=== PATIENT | female | born 1935 | race Caucasian/White ===

== ENCOUNTER 2020-12-03 22:34 | Emergency (ER) | payer BC, OTHER ==
[~2020-12-03] VITALS: Ht 162.6 cm; Wt 68.0 kg
[2020-12-03 22:37] VITALS: BP_SYST 115
--- NOTE | 2020-12-03 22:42 | NUR ---
Placed in room 01 . Placed on leases and land supervisor, blood pressure machine and pulse oximeter. To gown for exam. Side rails up. Report given to adelita Veras
[2020-12-03] MEDS ORDERED: NACL 0.9% 1,000 ML IV ONE (23:15)
--- NOTE | 2020-12-03 23:20 | NUR ---
IV STARTED RT FA 20G; LABS DRAWN PER [facility] PROTOCOL AND BLOOD CULTURES IV .9 NS 1000ML INFUSING
--- NOTE | 2020-12-03 23:35 | NUR ---
DR CALDERON TO [facility] PT
[2020-12-03] MEDS ORDERED: ONDANSETRON HCL 4 MG/2 ML VIAL IVP ONE (23:45)
[2020-12-03 23:47] LABS: BASOPHILS % (AUTO) 0.5 % (0.0-2.0); EOSINOPHILS % (AUTO) 0.3 % (0.0-4.0); HEMATOCRIT 41.5 % (36-48); HEMOGLOBIN 13.9 g/dL (12.0-16.0); LYMPHOCYTES # (AUTO) 0.6 K/uL (1.0-5.5); LYMPHOCYTES % (AUTO) 8.1 % (20.5-51.5); MEAN CORPUSCULAR HEMOGLOBIN 32 pg (27-31); MEAN CORPUSCULAR HGB CONC 34 % (32-36); MEAN CORPUSCULAR VOLUME 95 fL (79.0-98.0); MONOCYTES # (AUTO) 0.4 K/uL (0.0-1.0); MONOCYTES % (AUTO) 4.7 % (1.7-9.3); NEUTROPHILS # (AUTO) 6.7 K/uL (1.8-7.7); NEUTROPHILS % (AUTO) 86.4 % (40.0-70.0); PLATELET COUNT (AUTO) 131 K/uL (130-430); RED BLOOD CELL COUNT(AUTO) 4.39 MIL/uL (4.2-6.2); RED CELL DISTRIBUTION WIDTH 16.4 % (9.0-15.0); WHITE BLOOD COUNT (AUTO) 7.8 K/uL (4.8-10.8)
--- NOTE | 2020-12-03 23:54 | NUR ---
IV ZOFRAN 4MG GIVEN
[2020-12-04 00:43] LABS: ANION GAP 11 (5-15); CALCIUM 9.1 mg/dL (8.4-11.0); CHLORIDE 104 mmol/L (98-107); CREATININE 1.24 mg/dL (0.55-1.30); GLUCOSE 113 mg/dL (70-99); POTASSIUM 4.1 mmol/L (3.5-5.1); SODIUM SERUM 140 mmol/L (136-145); UREA NITROGEN, BLOOD 23 mg/dL (8-21)
[2020-12-04 00:48] LABS: ALANINE AMINOTRANSFERASE 72 U/L (12-78); ALBUMIN 3.4 g/dL (3.4-4.8); ASPARTATE AMINOTRANSFERASE 94 U/L (10-37); TOTAL BILIRUBIN 1.3 mg/dL (0.0-1.0)
--- NOTE | 2020-12-04 02:31 | NUR ---
LABS STILL PENDING
--- NOTE | 2020-12-04 02:55 | NUR ---
PT ST CATH FOR URINE ;100ML URINE RETURN; URINE TO LAB
[2020-12-04] MEDS ORDERED: LOPE2CAP PO (03:26)
[2020-12-04] MEDS ORDERED: ONDA4TAB5 PO (03:26)
--- NOTE | 2020-12-04 03:37 | NUR ---
DR CALDERON ADVISED POSSIBLE DISCHG AFTER URINE RESULTS BACK ; [facility] FROM [facility] UPDATED AND THAT PT MAY BE DISCHGED AND WILL CALL HER BACK
--- NOTE | 2020-12-04 04:48 | NUR ---
[facility] CALLED ADVISED PT DISCHGED AND UPDATED [facility] ; SHE WILL CALL BACK WHEN RON WHITMAN TO ARRIVE IN ER
--- NOTE | 2020-12-04 05:20 | NUR ---
PT IV DCD ;SITE WNL ;PT DISCHGED WITH AFTERCARE INSTRUCTIONS TO [facility] WHITMAN VIA W/C WITH BELONGINGS ;STABLE PT TRANSPORTED TO [facility]
[2020-12-04 05:23] VITALS: BP_SYST 112
[2020-12-04 07:48] LABS: COLOR,URINE YELLOW (YELLOW)
[2020-12-04 07:49] LABS: BILIRUBIN,URINE NEGATIVE (NEGATIVE); BLOOD, URINE NEGATIVE (NEGATIVE); CLARITY/URINE CLOUDY (CLEAR); GLUCOSE,URINE NEGATIVE (NEGATIVE); KETONES,URINE TRACE (NEGATIVE); LEUKOCYTE ESTERASE ,URINE TRACE (NEGATIVE); NITRITE, URINE NEGATIVE (NEGATIVE); PH,URINE 7.5 (5.0-8.0); PROTEIN URINE NEGATIVE (NEGATIVE)
[2020-12-04 08:23] LABS: BACTERIA,URINE MODERATE /HPF (None Seen); MUCUS,URINE 1+ /LPF (None Seen); RBC,URINE 0-3 /HPF (0-3)
[2020-12-05] MEDS ORDERED: PRO40 PO (14:56)
[2020-12-05] MEDS ORDERED: CLOP75TA32 PO (14:56)
[2020-12-05] MEDS ORDERED: SER100 PO (14:56)
[2020-12-05] MEDS ORDERED: SIMV40TA2 PO (14:56)
[2020-12-05] MEDS ORDERED: LEVO112T5 PO (14:56)
[2020-12-05] MEDS ORDERED: EZET1TAB22 PO (14:58)
== END 2020-12-04 05:23 | disposition home or self-care (01) ==
LOC: SED 22:34
DX: E86.0 Dehydration (principal); R11.2 Nausea with vomiting, unspecified; R19.7 Diarrhea, unspecified; I10 Essential (primary) hypertension; Z79.899 Other long term (current) drug therapy
CPT/HCPCS: 36415; 71045; 74176; 76376; 80053; 81000; 83605; 85025; 87040; 87086; 93005; 96361; 96374; 99291; J2405; J7030

== ENCOUNTER 2020-12-05 12:41 | Inpatient (IN) | payer OTHER, SELFPAY ==
[~2020-12-05] VITALS: Ht 162.6 cm; Wt 78.1 kg
[~2020-12-05 12:41] MED LIST: LOPE2CAP PO; ONDA4TAB5 PO
[2020-12-05 12:53] VITALS: BP_SYST 139
[2020-12-05] MEDS ORDERED: ONDANSETRON HCL 4 MG/2 ML VIAL IVP ONE ×2 (13:45)
[2020-12-05 14:36] LABS: BILIRUBIN,URINE NEGATIVE (NEGATIVE); BLOOD, URINE NEGATIVE (NEGATIVE); CLARITY/URINE TURBID (CLEAR); COLOR,URINE YELLOW (YELLOW); GLUCOSE,URINE NEGATIVE (NEGATIVE); KETONES,URINE NEGATIVE (NEGATIVE); LEUKOCYTE ESTERASE ,URINE 2+ (NEGATIVE); NITRITE, URINE NEGATIVE (NEGATIVE); PROTEIN URINE NEGATIVE (NEGATIVE)
[2020-12-05] MEDS ORDERED: CLOP75TA32 PO (14:56)
[2020-12-05] MEDS ORDERED: PRO40 PO (14:56)
[2020-12-05] MEDS ORDERED: SER100 PO (14:56)
[2020-12-05] MEDS ORDERED: SIMV40TA2 PO (14:56)
[2020-12-05] MEDS ORDERED: LEVO112T5 PO (14:56)
[2020-12-05] MEDS ORDERED: EZET1TAB22 PO (14:58)
[2020-12-05] MEDS ORDERED: cefTRIAXone 1 GM IVPB PREMIX 50 ML IV ONE (15:00)
[2020-12-05 15:22] LABS: BACTERIA,URINE FEW /HPF (None Seen)
[2020-12-05 15:22] LABS: BASOPHILS % (AUTO) 0.2 % (0.0-2.0); EOSINOPHILS % (AUTO) 0.3 % (0.0-4.0); HEMATOCRIT 40.7 % (36-48); HEMOGLOBIN 13.7 g/dL (12.0-16.0); LYMPHOCYTES # (AUTO) 1.4 K/uL (1.0-5.5); MEAN CORPUSCULAR HEMOGLOBIN 32 pg (27-31); MEAN CORPUSCULAR HGB CONC 34 % (32-36); MEAN CORPUSCULAR VOLUME 95 fL (79.0-98.0); MONOCYTES # (AUTO) 0.6 K/uL (0.0-1.0); NEUTROPHILS % (AUTO) 85.5 % (40.0-70.0); PLATELET COUNT (AUTO) 127 K/uL (130-430); RED BLOOD CELL COUNT(AUTO) 4.29 MIL/uL (4.2-6.2); RED CELL DISTRIBUTION WIDTH 16.8 % (9.0-15.0)
[2020-12-05 15:44] LABS: ANION GAP 10 (5-15); CALCIUM 9.1 mg/dL (8.4-11.0); CHLORIDE 102 mmol/L (98-107); CREATININE 1.04 mg/dL (0.55-1.30); GLUCOSE 105 mg/dL (70-99); POTASSIUM 4.3 mmol/L (3.5-5.1); SODIUM SERUM 141 mmol/L (136-145); UREA NITROGEN, BLOOD 23 mg/dL (8-21)
[2020-12-05 15:45] LABS: PROTHROMBIN TIME 10.3 SECS (9.5-12.5)
[2020-12-05 15:50] LABS: ALANINE AMINOTRANSFERASE 81 U/L (12-78); ALBUMIN 3.5 g/dL (3.4-4.8); AMYLASE 25 U/L (0-100); ASPARTATE AMINOTRANSFERASE 118 U/L (10-37); LIPASE 78 U/L (73-393); TOTAL BILIRUBIN 0.9 mg/dL (0.0-1.0)
[2020-12-05 16:06] LABS: C-REACTIVE PROTEIN QUANT 4.3 mg/dL (0-0.5)
[2020-12-05 20:45] VITALS: BP_SYST 104
[2020-12-05] MEDS ORDERED: ONDANSETRON HCL 4 MG/2 ML VIAL IVP PRN (23:15)
[2020-12-05] MEDS ORDERED: ACETAMINOPHEN 325 MG TABLET PO PRN (23:15)
[2020-12-05] MEDS: NACL 0.9% 1,000 ML IV SCH (23:49)
[2020-12-06 00:30] VITALS: BP_SYST 112
[2020-12-06 07:17] LABS: BASOPHILS % (AUTO) 0.2 % (0.0-2.0); EOSINOPHILS % (AUTO) 0.3 % (0.0-4.0); HEMATOCRIT 35.5 % (36-48); HEMOGLOBIN 11.9 g/dL (12.0-16.0); LYMPHOCYTES # (AUTO) 2.4 K/uL (1.0-5.5); LYMPHOCYTES % (AUTO) 18.2 % (20.5-51.5); MEAN CORPUSCULAR HEMOGLOBIN 32 pg (27-31); MEAN CORPUSCULAR HGB CONC 34 % (32-36); MEAN CORPUSCULAR VOLUME 94 fL (79.0-98.0); MONOCYTES # (AUTO) 0.7 K/uL (0.0-1.0); MONOCYTES % (AUTO) 5.4 % (1.7-9.3); NEUTROPHILS # (AUTO) 9.8 K/uL (1.8-7.7); NEUTROPHILS % (AUTO) 75.9 % (40.0-70.0); PLATELET COUNT (AUTO) 107 K/uL (130-430); RED BLOOD CELL COUNT(AUTO) 3.77 MIL/uL (4.2-6.2); RED CELL DISTRIBUTION WIDTH 16.6 % (9.0-15.0)
[2020-12-06 08:00] VITALS: BP_SYST 116
[2020-12-06] MEDS ORDERED: MAGNESIUM SULFATE 50 ML IV PRN (08:15)
[2020-12-06] MEDS ORDERED: MUPIROCIN 2% TOPICAL OINTMENT 22 GM NS PRN (08:15)
[2020-12-06] MEDS ORDERED: ACETAMINOPHEN 325 MG TABLET PO PRN (08:15)
[2020-12-06] MEDS ORDERED: DOCUSATE SODIUM 100 MG CAPSULE PO PRN (08:15)
[2020-12-06] MEDS ORDERED: ZOLPIDEM TARTRATE 5 MG TABLET PO PRN (08:15)
[2020-12-06] MEDS ORDERED: ONDANSETRON HCL 4 MG/2 ML VIAL IVP PRN (08:15)
[2020-12-06] MEDS ORDERED: LORazepam 2 MG/ML VIAL IVP PRN (08:15)
[2020-12-06] MEDS ORDERED: POTASSIUM CHLORIDE 20 MEQ TAB.PRT.SR PO PRN (08:15)
[2020-12-06 08:24] LABS: ALANINE AMINOTRANSFERASE 56 U/L (12-78); ALBUMIN 2.6 g/dL (3.4-4.8); ANION GAP 9 (5-15); ASPARTATE AMINOTRANSFERASE 83 U/L (10-37); CALCIUM 8.3 mg/dL (8.4-11.0); CHLORIDE 106 mmol/L (98-107); GLUCOSE 89 mg/dL (70-99); PHOSPHORUS 3.5 mg/dL (2.7-4.5); POTASSIUM 3.4 mmol/L (3.5-5.1); SODIUM SERUM 141 mmol/L (136-145); TOTAL BILIRUBIN 0.8 mg/dL (0.0-1.0); UREA NITROGEN, BLOOD 23 mg/dL (8-21)
[2020-12-06] MEDS: cefTRIAXone 1 GM in D5W 50 ML IV SCH (08:36)
[2020-12-06] MEDS: PANTOPRAZOLE SODIUM 40 MG/VIAL (PROTONIX) IVP SCH (08:36)
[2020-12-06] MEDS ORDERED: ENOXAPARIN SODIUM 30 MG/0.3 ML SYRINGE SUBCUT SCH (09:00)
[2020-12-06] MEDS: QUEtiapine FUMARATE 100 MG TABLET PO SCH (11:54)
[2020-12-06] MEDS: LEVOTHYROXINE SODIUM 0.112 MG TABLET PO SCH (11:54)
[2020-12-06] MEDS: CLOPIDOGREL BISULFATE 75 MG TABLET PO SCH (11:55)
[2020-12-06 12:00] VITALS: BP_SYST 114
[2020-12-06] MEDS: GENTAMICIN 120 MG/ ISO-OSM 100 ML PREMIX IV SCH (13:12)
[2020-12-06] MEDS: NACL 0.9% 1,000 ML IV SCH (14:23)
[2020-12-06 16:38] VITALS: BP_SYST 115
[2020-12-06 20:13] VITALS: BP_SYST 119
[2020-12-07 01:12] VITALS: BP_SYST 138
[2020-12-07] MEDS: NACL 0.9% 1,000 ML IV SCH ×2 (02:52→16:40)
[2020-12-07 06:36] LABS: BASOPHILS % (AUTO) 0.4 % (0.0-2.0); EOSINOPHILS # (AUTO) 0.1 K/uL (0.0-0.4); EOSINOPHILS % (AUTO) 1.5 % (0.0-4.0); HEMATOCRIT 34.8 % (36-48); HEMOGLOBIN 11.7 g/dL (12.0-16.0); LYMPHOCYTES # (AUTO) 2.1 K/uL (1.0-5.5); LYMPHOCYTES % (AUTO) 21.5 % (20.5-51.5); MEAN CORPUSCULAR HEMOGLOBIN 32 pg (27-31); MEAN CORPUSCULAR HGB CONC 34 % (32-36); MEAN CORPUSCULAR VOLUME 95 fL (79.0-98.0); MONOCYTES # (AUTO) 0.6 K/uL (0.0-1.0); MONOCYTES % (AUTO) 6.1 % (1.7-9.3); NEUTROPHILS # (AUTO) 6.7 K/uL (1.8-7.7); NEUTROPHILS % (AUTO) 70.5 % (40.0-70.0); PLATELET COUNT (AUTO) 114 K/uL (130-430); RED BLOOD CELL COUNT(AUTO) 3.67 MIL/uL (4.2-6.2); RED CELL DISTRIBUTION WIDTH 16.3 % (9.0-15.0); WHITE BLOOD COUNT (AUTO) 9.6 K/uL (4.8-10.8)
[2020-12-07 06:52] LABS: ALANINE AMINOTRANSFERASE 49 U/L (12-78); ALBUMIN 2.4 g/dL (3.4-4.8); ANION GAP 9 (5-15); ASPARTATE AMINOTRANSFERASE 60 U/L (10-37); BILIRUBIN,DIRECT 0.4 mg/dL (0.0-0.3); CHLORIDE 109 mmol/L (98-107); CREATININE 0.98 mg/dL (0.55-1.30); GLUCOSE 91 mg/dL (70-99); POTASSIUM 3.5 mmol/L (3.5-5.1); SODIUM SERUM 143 mmol/L (136-145); TOTAL BILIRUBIN 0.7 mg/dL (0.0-1.0); UREA NITROGEN, BLOOD 22 mg/dL (8-21)
[2020-12-07 07:56] VITALS: BP_SYST 131
[2020-12-07] MEDS ORDERED: LEVO500T89 PO (08:10)
[2020-12-07] MEDS: PANTOPRAZOLE SODIUM 40 MG/VIAL (PROTONIX) IVP SCH (08:21)
[2020-12-07] MEDS: CLOPIDOGREL BISULFATE 75 MG TABLET PO SCH (08:21)
[2020-12-07] MEDS: QUEtiapine FUMARATE 100 MG TABLET PO SCH (08:21)
[2020-12-07] MEDS: LEVOTHYROXINE SODIUM 0.112 MG TABLET PO SCH (08:21)
[2020-12-07] MEDS: cefTRIAXone 1 GM in D5W 50 ML IV SCH (08:22)
[2020-12-07 12:00] VITALS: BP_SYST 135
[2020-12-07] MEDS: GENTAMICIN 120 MG/ ISO-OSM 100 ML PREMIX IV SCH (14:21)
[2020-12-07 15:31] VITALS: BP_SYST 126
[2020-12-07 20:00] VITALS: BP_SYST 124
[2020-12-08] VITALS: BP_SYST 118
[2020-12-08] MEDS: NACL 0.9% 1,000 ML IV SCH (04:59)
[2020-12-08 07:10] LABS: BASOPHILS % (AUTO) 0.5 % (0.0-2.0); EOSINOPHILS # (AUTO) 0.3 K/uL (0.0-0.4); EOSINOPHILS % (AUTO) 3.7 % (0.0-4.0); HEMATOCRIT 36.7 % (36-48); HEMOGLOBIN 12.1 g/dL (12.0-16.0); LYMPHOCYTES # (AUTO) 1.9 K/uL (1.0-5.5); LYMPHOCYTES % (AUTO) 24.1 % (20.5-51.5); MEAN CORPUSCULAR HEMOGLOBIN 32 pg (27-31); MEAN CORPUSCULAR HGB CONC 33 % (32-36); MEAN CORPUSCULAR VOLUME 95 fL (79.0-98.0); MONOCYTES # (AUTO) 0.5 K/uL (0.0-1.0); NEUTROPHILS # (AUTO) 5.3 K/uL (1.8-7.7); NEUTROPHILS % (AUTO) 65.7 % (40.0-70.0); PLATELET COUNT (AUTO) 119 K/uL (130-430); RED BLOOD CELL COUNT(AUTO) 3.86 MIL/uL (4.2-6.2); RED CELL DISTRIBUTION WIDTH 16.4 % (9.0-15.0)
[2020-12-08 07:56] VITALS: BP_SYST 141
[2020-12-08 08:01] LABS: ANION GAP 9 (5-15); CALCIUM 8.3 mg/dL (8.4-11.0); CHLORIDE 110 mmol/L (98-107); CREATININE 0.79 mg/dL (0.55-1.30); GLUCOSE 86 mg/dL (70-99); POTASSIUM 3.7 mmol/L (3.5-5.1); SODIUM SERUM 143 mmol/L (136-145); UREA NITROGEN, BLOOD 17 mg/dL (8-21)
[2020-12-08] MEDS: cefTRIAXone 1 GM in D5W 50 ML IV SCH (08:03)
[2020-12-08] MEDS: LEVOTHYROXINE SODIUM 0.112 MG TABLET PO SCH (08:04)
[2020-12-08] MEDS: PANTOPRAZOLE SODIUM 40 MG/VIAL (PROTONIX) IVP SCH (08:04)
[2020-12-08] MEDS: CLOPIDOGREL BISULFATE 75 MG TABLET PO SCH (08:04)
[2020-12-08] MEDS: QUEtiapine FUMARATE 100 MG TABLET PO SCH (08:04)
[2020-12-08 09:56] LABS: C-REACTIVE PROTEIN QUANT 6.7 mg/dL (0-0.5)
[2020-12-08 12:40] VITALS: BP_SYST 132
[2020-12-08] MEDS: GENTAMICIN 120 MG/ ISO-OSM 100 ML PREMIX IV SCH (14:04)
[2020-12-08 14:33] VITALS: BP_SYST 132
[2020-12-08 16:00] VITALS: BP_SYST 137
== END 2020-12-08 16:20 | disposition home or self-care (01) | DRG 872 ==
LOC: SED 12:41 → SMU 17:31
PROVIDERS: ADMIT General Practice; ATTEND General Practice
DX: A41.9 Sepsis, unspecified organism (principal); N10 Acute pyelonephritis; I25.10 Atherosclerotic heart disease of native coronary artery without angina pectoris; E78.5 Hyperlipidemia, unspecified; E03.9 Hypothyroidism, unspecified; F39 Unspecified mood [affective] disorder; R74.01 Elevation of levels of liver transaminase levels; E86.0 Dehydration; Z20.822 Contact with and (suspected) exposure to COVID-19; Z88.2 Allergy status to sulfonamides; Z79.890 Hormone replacement therapy; Z79.899 Other long term (current) drug therapy; Z90.710 Acquired absence of both cervix and uterus
CPT/HCPCS: 36415; 76770; 80048; 80053; 80076; 81000; 82150; 83036; 83605; 83690; 83735; 84100; 84443; 84484; 85025; 85610-TC; 85730-TC; 86140; 87040-TC; 87086; 93005; 96365; 96375; 99285; C9113; J0696; J1580; J2405; J7060

== ENCOUNTER 2021-03-22 13:39 | Emergency (ER) | payer OTHER, SELFPAY ==
[~2021-03-22] VITALS: Ht 160 cm; Wt 81.6 kg
[~2021-03-22 13:39] MED LIST changes: +CLOP75TA32 PO; +EZET1TAB22 PO; +LEVO112T5 PO; +LEVO500T90 PO; -LOPE2CAP PO; -ONDA4TAB5 PO; +PRO40 PO; +SER100 PO
--- NOTE | 2021-03-22 13:45 | NUR ---
ER at bedside examining patient.
--- NOTE | 2021-03-22 13:48 | NUR ---
Placed in room 04 . Placed on secured entrance monitor, blood pressure machine and pulse oximeter. To gown for exam. Side rails up.
[2021-03-22 13:49] VITALS: BP_SYST 118
--- NOTE | 2021-03-22 14:45 | NUR ---
Pt. comfortable, [id number], states here because she passed out while in the bathroom, has no recollection of event, was found by , at this time no issues, [facility]
[2021-03-22 14:46] LABS: BASOPHILS % (AUTO) 0.7 % (0.0-2.0); EOSINOPHILS # (AUTO) 0.1 K/uL (0.0-0.4); EOSINOPHILS % (AUTO) 1.6 % (0.0-4.0); HEMATOCRIT 39.5 % (36-48); HEMOGLOBIN 13.1 g/dL (12.0-16.0); LYMPHOCYTES # (AUTO) 2.2 K/uL (1.0-5.5); LYMPHOCYTES % (AUTO) 33.4 % (20.5-51.5); MEAN CORPUSCULAR HEMOGLOBIN 31 pg (27-31); MEAN CORPUSCULAR HGB CONC 33 % (32-36); MEAN CORPUSCULAR VOLUME 94 fL (79.0-98.0); MONOCYTES # (AUTO) 0.4 K/uL (0.0-1.0); MONOCYTES % (AUTO) 5.8 % (1.7-9.3); NEUTROPHILS # (AUTO) 3.9 K/uL (1.8-7.7); NEUTROPHILS % (AUTO) 58.5 % (40.0-70.0); PLATELET COUNT (AUTO) 150 K/uL (130-430); RED BLOOD CELL COUNT(AUTO) 4.18 MIL/uL (4.2-6.2); RED CELL DISTRIBUTION WIDTH 15.8 % (9.0-15.0); WHITE BLOOD COUNT (AUTO) 6.7 K/uL (4.8-10.8)
[2021-03-22 14:55] LABS: ANION GAP 9 (5-15); CHLORIDE 105 mmol/L (98-107); CREATININE 1.12 mg/dL (0.55-1.30); GLUCOSE 138 mg/dL (70-99); POTASSIUM 4.6 mmol/L (3.5-5.1); SODIUM SERUM 143 mmol/L (136-145); UREA NITROGEN, BLOOD 21 mg/dL (8-21)
--- NOTE | 2021-03-22 14:56 | NUR ---
ER at bedside examining patient.
[2021-03-22 15:06] LABS: INR 0.9 (0.8-1.2); PROTHROMBIN TIME 10.1 SECS (9.5-12.5)
[2021-03-22 15:12] LABS: ALANINE AMINOTRANSFERASE 38 U/L (12-78); ALBUMIN 3.2 g/dL (3.4-4.8); ASPARTATE AMINOTRANSFERASE 42 U/L (10-37); TOTAL BILIRUBIN 0.6 mg/dL (0.0-1.0)
[2021-03-22 17:12] VITALS: BP_SYST 126
--- NOTE | 2021-03-22 17:12 | NUR ---
Patient given written and verbal discharge instructions and verbalizes understanding. ER MD discussed with patient the results and treatment provided. Patient in stable condition. ID arm band removed. IV catheter removed intact and dressing applied, no active bleeding. No Rx given. Patient educated on pain management and to follow up with PMD. Pain Scale 0/10 Opportunity for questions provided and answered.
== END 2021-03-22 17:12 | disposition home or self-care (01) ==
LOC: SED 13:39
DX: R55 Syncope and collapse (principal); I10 Essential (primary) hypertension; Z79.899 Other long term (current) drug therapy
CPT/HCPCS: 36415; 70450-TC; 71045; 76376; 80053; 82550; 83605; 84484; 85025; 85610-TC; 85730-TC; 93005; 99285